=== PATIENT | male | born 1940 | race Caucasian/White ===

== ENCOUNTER → 2023-11-06 08:34 | Outpatient (REF) | payer MEDICARE, SELFPAY ==
[2023-11-06 10:50] LABS: Urine Albumin Negative (Neg - Trace); Urine Bilirubin Negative (Negative); Urine Character Clear (Clear); Urine Color Yellow; Urine Glucose Negative (Negative); Urine Ketone Negative (Negative); Urine Leukocyte Negative (Negative); Urine Nitrite Negative (Negative); Urine Occult Blood Negative (Negative); Urine Specific Gravity 1.015 (<1.030); Urine Urobilinogen Negative (Neg - 1+)
[2023-11-06 11:10] LABS: % Basophils 0.2 % (0-2); % Immature Granulocytes 0.4 % (0-0.5); % Lymphocytes 23.6 % (20.5-51.1); % Monocytes 7.6 % (1.7-9.3); % Neutrophils 66.2 % (42.2-75.2); Absolute Eosinophils 0.1 10^3/uL (0-0.7); Absolute Lymphocytes 1.3 10^3/uL (1.2-3.4); Absolute Monocytes 0.4 10^3/uL (0.1-0.6); Absolute Neutrophils 3.7 10^3/uL (1.4-6.5); Hematocrit 41.8 % (39.0-52.0); Hemoglobin 13.8 g/dL (13.0-18.0); Mean Corpuscular Hgb 29.1 pg (27.0-31.0); Mean Platelet Volume 13.5 fL (7.4-10.4); Nucleated Red Blood Cells % 0 % (-); Platelet Count 140 10^3/uL (130-400); Red Blood Cell Count 4.75 10^6/uL (4.70-6.10); Red Cell Dist. Width 12.8 % (11.5-14.5); White Blood Cell Count 5.5 10^3/uL (4.8-10.8)
[2023-11-06 11:18] LABS: Glycohemoglobin (HgbA1c) 5.5 % (4.0-5.6)
[2023-11-06 11:26] LABS: ALT (SGPT) 17 U/L (0-50); AST (SGOT) 25 U/L (17-59); Albumin 4.1 g/dl (3.5-5.0); Alkaline Phosphatase 62 U/L (38-126); Blood Urea Nitrogen 20 mg/dl (9-20); Calcium 9.4 mg/dl (8.4-10.2); Carbon Dioxide 28 mmol/L (22-30); Chloride 103 mmol/L (98-107); Glucose 94 mg/dl (70-99); HDL Cholesterol 88 mg/dl; LDL Cholesterol, Calculated 135 mg/dl; Potassium 4.4 mmol/L (3.5-5.1); Sodium 139 mmol/L (135-145); Total Bilirubin 0.6 mg/dl (0.2-1.3); Total Cholesterol 237 mg/dl (50-199); Total Protein 6.4 g/dl (6.3-8.2); Triglyceride 73 mg/dl (10-149); Very Low Density Lipoprotein 14 mg/dl (0-30); eGFR > 60.00
[2023-11-06 11:36] LABS: Vitamin D, 25-OH*** 49.7 ng/mL (30-80)
[2023-11-06 11:49] LABS: TSH Reflex To Free T4 1.52 uIU/ml (0.47-4.68)
[2023-11-06 13:24] LABS: Vitamin B12 647 pg/ml (239-931)
== END ==
LOC: REG 08:34
PROVIDERS: ATTENDING PHYSICIAN Nurse Practitioner Primary Care
DX: I10 Essential (primary) hypertension (principal); E78.2 Mixed hyperlipidemia; R73.03 Prediabetes; R41.3 Other amnesia; N40.1 Benign prostatic hyperplasia with lower urinary tract symptoms; R35.0 Frequency of micturition; E55.9 Vitamin D deficiency, unspecified
CPT/HCPCS: 36415; 80053; 80061; 81003; 82306; 82607; 83036; 84443; 85025

== ENCOUNTER → 2024-06-04 08:05 | Outpatient (REF) | payer MEDICARE, SELFPAY | LOC: HWRCS 08:05 | PROVIDERS: ATTENDING PHYSICIAN Nurse Practitioner Primary Care | DX: I10 Essential (primary) hypertension (principal); R07.89 Other chest pain; E78.2 Mixed hyperlipidemia | CPT/HCPCS: 78452; 93017; A9500; J2785 ==

== ENCOUNTER → 2024-06-08 08:18 | Outpatient (REF) | payer MEDICARE, SELFPAY ==
[2024-06-08 09:07] LABS: Urine Albumin Negative (Neg - Trace); Urine Bilirubin Negative (Negative); Urine Character Clear (Clear); Urine Color Yellow; Urine Glucose Negative (Negative); Urine Ketone Negative (Negative); Urine Leukocyte Negative (Negative); Urine Nitrite Negative (Negative); Urine Occult Blood Negative (Negative); Urine Specific Gravity 1.015 (<1.030); Urine Urobilinogen Negative (Neg - 1+)
[2024-06-08 09:23] LABS: Erythrocyte Sed Rate 1 mm/hour (0-20)
[2024-06-08 09:53] LABS: ALT (SGPT) 22 U/L (0-50); AST (SGOT) 25 U/L (17-59); Albumin 3.9 g/dl (3.5-5.0); Alkaline Phosphatase 66 U/L (38-126); Blood Urea Nitrogen 24 mg/dl (9-20); Carbon Dioxide 31 mmol/L (22-30); Chloride 101 mmol/L (98-107); Glucose 104 mg/dl (70-99); HDL Cholesterol 81 mg/dl; LDL Cholesterol, Calculated 131 mg/dl; Sodium 137 mmol/L (135-145); Total Bilirubin 0.7 mg/dl (0.2-1.3); Total Cholesterol 228 mg/dl (50-199); Total Protein 6.2 g/dl (6.3-8.2); Triglyceride 82 mg/dl (10-149); Very Low Density Lipoprotein 16 mg/dl (0-30); eGFR > 60.00
[2024-06-08 10:04] LABS: Vitamin D, 25-OH*** 65.6 ng/mL (30-80)
[2024-06-08 10:18] LABS: TSH Reflex To Free T4 1.26 uIU/ml (0.47-4.68)
[2024-06-08 10:25] LABS: Glycohemoglobin (HgbA1c) 5.6 % (4.0-5.6)
[2024-06-08 10:37] LABS: Vitamin B12 652 pg/ml (239-931)
== END ==
LOC: REG 08:18
PROVIDERS: ATTENDING PHYSICIAN Nurse Practitioner Primary Care
DX: R41.3 Other amnesia (principal); E78.2 Mixed hyperlipidemia; R73.03 Prediabetes; N40.1 Benign prostatic hyperplasia with lower urinary tract symptoms
CPT/HCPCS: 36415; 80053; 80061; 81003; 82306; 82607; 83036; 84443; 85652; 86780

== ENCOUNTER → 2024-06-09 17:32 | Outpatient (REF) | payer MEDICARE, SELFPAY | LOC: RCS 17:32 | PROVIDERS: ATTENDING PHYSICIAN Nurse Practitioner Primary Care | DX: I10 Essential (primary) hypertension (principal); R07.89 Other chest pain; E78.2 Mixed hyperlipidemia | CPT/HCPCS: 93306 ==

== ENCOUNTER 2025-02-04 19:24 | Emergency (ER) | payer MEDICARE, SELFPAY ==
[2025-02-04 19:50] LABS: Hematocrit 44.5 % (39.0-52.0); Hemoglobin 14.4 g/dL (13.0-18.0); Mean Corp Hgb Conc. 32.4 g/dL (33.0-37.0); Mean Corpuscular Volume 89.5 fL (80.0-94.0); Nucleated Red Blood Cells % 0 % (-); Platelet Count 153 10^3/uL (130-400); Red Cell Dist. Width 12.9 % (11.5-14.5)
[2025-02-04 20:13] LABS: ALT (SGPT) 27 U/L (0-50); AST (SGOT) 30 U/L (17-59); Albumin 4.6 g/dl (3.5-5.0); Alkaline Phosphatase 66 U/L (38-126); Blood Urea Nitrogen 22 mg/dl (9-20); Calcium 9.9 mg/dl (8.4-10.2); Carbon Dioxide 31 mmol/L (22-30); Chloride 102 mmol/L (98-107); Glucose 111 mg/dl (70-99); Potassium 4.0 mmol/L (3.5-5.1); Sodium 139 mmol/L (135-145); Total Protein 7.2 g/dl (6.3-8.2); eGFR > 60.00
[2025-02-04 20:23] LABS: Troponin I < 0.012 ng/ml
--- NOTE | 2025-02-05 00:58 | ED.GENMED ---
History of Present Illness
General
Chief Complaint: Fainting/Passed Out
Source: patient
Exam Limitations: none
Time Seen by Provider: 02/05/25 00:22
Nursing documentation reviewed up to this point in time: agreed with
History of Present Illness
History of Present Illness:
Patient is an 85-year-old male presents after syncopal episode. Patient was in the sauna at the gym for about 20 minutes came out and had a syncopal episode and fell. Patient's son was with him.
Patient sustained laceration to his nose and abrasion to forehead. He is unsure of his last tetanus. Patient denies any other bony pain. It is documented from triage note the patient has abrasions to his left shoulder and bilateral knees however
he has no complaints of pain. He denies any headache nausea vomiting. He reports he has chronic neck pain. He denies any chest pain or shortness of breath prior to the event.
He is not on blood thinners.
Past History
Past History
ED Past Medical History: HTN and Hypercholesterolemia
Social History
Tobacco: Non-smoker
Phy Exam
General Physical Exam
General Presentation: no apparent distress
General age: appears stated age
General Skin: warm and dry
General Habitus: elderly
General Mental: alert
General Hydration: dry mucous membranes
ENT Exam
ENT Exam: other (+ 2 cm v shaped laceration to bridge of nose + abrasion to forehead and ecchymosis under left eye no bony orbital tenderness)
Eye Exam
Eye Exam: PERRL, EOMI and other (No bony orbital tenderness to bilateral orbits no entrapment)
Eye Exam General: PERRL: bilateral and EOM intact: bilateral
Pupil Exam: Bilateral: round and reactive
Cardiovascular Exam
Cardiovascular Exam: no murmur, normal peripheral pulses and bradycardia
Pulmonary Exam
Pulmonary Exam: lungs clear and no respiratory distress
Neurological Exam
Neurological Exam: alert and oriented x3
Musculoskeletal Exam
Musculoskeletal Exam: other (No bony C-spine tenderness bilateral knee abrasions with no bony knee tenderness full range of motion + left shoulder abrasion no bony tenderness full rom )
Skin Exam
Skin Exam: normal color and warm/dry
Course
Orders/Labs/Results
Orders:
Orders
02/04/25 19:26
ECG [Electrocardiogram (*1)] Urgent
Reason for Study: Syncope
EKG- Treatment ONCE
02/04/25 19:35
CT Head W/o Iv Contrast Urgent
Comment:
Reason For Exam: head injury
02/04/25 19:42
Complete Blood Count/With Diff Urgent
Comprehensive Metabolic Panel Urgent
Troponin I Urgent
02/05/25 01:04
CT Facial Bones W/o Iv Contras Urgent
Comment:
Reason For Exam: fall
02/05/25 01:18
CT Cervical Spine W/o Iv Contr Urgent
Comment:
Reason For Exam: trauma
IV Insert/Care/Rem.- Treatment PRN
0.9% Sodium Chloride 1000 ml [Nss] 1,000 ml IV BOLUS
Tetanus/Diphth/Acelpertussis [Adacel] 0.5 ml IM .ONCE ONE
Abnormal Lab Results
02/04/25
19:42
MCHC 32.4 L g/dL
(33.0-37.0)
MPV 13.0 H fL
(7.4-10.4)
Carbon Dioxide 31 H mmol/L
(22-30)
BUN 22 H mg/dl
(9-20)
Glucose 111 H mg/dl
(70-99)
02/04/25 19:42
02/04/25 19:42
Vital Signs
Initial and Last Documented VS:
Initial Vital Signs
Temp Pulse Resp Pulse Ox
97.9 F 63 19 100
02/04/25 19:32 02/04/25 19:32 02/04/25 19:32 02/04/25 19:32
Last Documented Vital Signs
Temp Pulse Resp BP Pulse Ox
97.9 F 63 18 138/56 95
02/04/25 19:32 02/05/25 00:36 02/05/25 00:36 02/05/25 01:00 02/05/25 01:00
Procedures
Laceration Closure
nose:
Status of Wound: appears infected
Size of Wound in cm: 2
Description of Wound Edges: flap-well vascularized
Preparation: cleaned with saline
Anesthesia: 1% Lidocaine
Revision/Debridement: routine- no revision
Type of Closure: single layer closure and interrupted sutures
Skin Closure Material: 6-0 nylon
Number of sutures: 2
MDM/Problems Addressed
Differential Diagnosis Includes:
Not limited to syncope, dehydration, head injur,/y intracranial hemorrhage ,nasal fracture ,nasal laceration, abrasions, contusions
MDM/Problems Addressed:
Patient is a 85-year-old male was in a sauna and had a syncopal episode after sustaining laceration to nose and abrasions to head. He has abrasions to his left shoulder bilateral knees however he has no bony tenderness. He has full range of motion
to all extremities he is awake alert. He has a history of mild dementia however is at baseline is able to give good history and answer questions appropriately. Head CT was done prior to my exam and negative will obtain CT facial bones and cervical
spine film. Tetanus was updated. Patient sustained a laceration to nose which was repaired with sutures. Labs reviewed patient with an elevated BUN of 22 ;small fluid bolus ordered patient also taking oral fluids here in the ER
Chronic conditions affecting care:
Mild dementia
*Radiology
Radiology exam reviewed: radiology read reviewed
*Pulse Oximetry
SaO2: 95
Oxygen Mode of Delivery: Room air
Patient hypoxic: no
*EKG
Interpreted by ED Provider?: Yes
Comparison EKG: no changes
Heart Rate: 59
Rate: bradycardiac
Rhythm: sinus
Ischemia: no ischemia
*Critical Care Note
Total Time (30-74mins, 75-104mins- exclusive of procedures): Not Applicable
ED Attending Note
-
Portions of this chart may have been created with voice recognition software.� Occasional wrong word or��sound alike� substitutions may have occurred due to the inherent limitations of voice recognition software.
Discharge Plan
Departure
Patient Disposition: Home (Routine Discharge)
Date of Disposition: 02/05/25
Time of Disposition: 04:02
Patient with high blood pressure during this ER visit?: Yes
Condition: Fair
Covid-19: Not Applicable
Discharge Problem:
Head injury, Syncope, Laceration, Abrasion
Instructions: Syncope (Fainting) (DC), BLOOD PRESSURE, Laceration
Prescriptions:
No Action
famotidine 40 mg Tablet
40 mg PO PRN PRN (Reason: GI issues)
psyllium Powder
1 tsp PO DAILY
lisinopril-hydrochlorothiazide 10-12.5 mg Tablet
1 tab PO PRN PRN (Reason: elevated blood pressure)
fluticasone propionate 50 mcg/actuation [place],Suspension
2 spray INTRANASAL DAILY
folic acid 800 mcg Tablet
0.8 mg PO DAILY
Saline Nasal Mist 0.65 % Aerosol,[place]
1 spray INTRANASAL PRN PRN (Reason: stuffy nose)
omega [id number]-fish oil [Fish Oil] 1,000 mg (120 mg-180 mg) Capsule
1 cap PO DAILY
Dynamic Brain
2 cap PO DAILY
Systane Complete
2 drp BOTH EYES BID
tramadol 50 mg tablet
50 mg PO Q6HPRN PRN (Reason: severe pain/breakthrough pain) Qty: 7 0RF
acetaminophen [Tylenol Extra Strength] 500 mg tablet
1,000 mg PO Q6HPRN PRN (Reason: mild pain) Qty: 1 0RF
ibuprofen 200 mg tablet
400 mg PO Q6HPRN PRN (Reason: moderate pain) Qty: 1 0RF
polyethylene glycol 3350 [Miralax] 17 gram/dose powder
4 g PO DAILY PRN (Reason: Constipation) Qty: 119 0RF
Rx Instructions:
start a laxative such as MIRALAX on day 2 after surgery if no bowel movement yet as long as no nausea/vomiting and passing gas
Referrals:
Placido Alexander DO [Family Provider, Internal Medicine]
Activity Restrictions/Additional Instructions:
Keep laceration clean and dry for 24 hours after 24 hours wash twice a day with soap and water pat dry and apply small layer of antibiotic ointment to the area.
See family doctor in 2 days for wound check and reevaluation of symptoms. Sutures to be removed in the next 5 days.
Please increase fluid intake you were dehydrated
Interventions
Interventions:
*Risk Screen - Suicide Last Done: 02/04/25 19:34
*General Assessment Last Done: 02/04/25 19:34
*Neglect/Abuse Screening Last Done: 02/04/25 19:34
*ED- Fall Risk Assessment Last Done: 02/05/25 00:36
*ED COVID-19 Vaccine History Last Done: 02/04/25 19:34
*ED Influenza Vaccine History Last Done: 02/04/25 19:34
*Nursing Disposition Last Done: 02/05/25 04:55
ED- Cardiac Assessment Last Done: 02/05/25 02:47
ED- Neurological Assessment Last Done: 02/05/25 02:47
Discharge Date and Time
Discharge Date/Time: 02/05/25 04:56
Print Language: ETHIOPIAN
[2025-02-05 01:00] VITALS: BP 138/56
[2025-02-05] MEDS: ADACEL 0.5 ML IM (02:16)
[2025-02-05] MEDS: NSS 1000 IV (02:21)
== END 2025-02-05 04:56 | disposition home or self-care (01) ==
LOC: EMR 19:24
PROVIDERS: Emergency Medicine; EMERGENCY PHYSICIAN Emergency Medicine; FAMILY PHYSICIAN Internal Medicine
DX: S09.90XA Unspecified injury of head, initial encounter (principal); R55 Syncope and collapse; S01.21XA Laceration without foreign body of nose, initial encounter; R00.1 Bradycardia, unspecified; E86.0 Dehydration; F03.A0 Unspecified dementia, mild, without behavioral disturbance, psychotic disturbance, mood disturbance, and anxiety; I10 Essential (primary) hypertension; E78.00 Pure hypercholesterolemia, unspecified; M54.2 Cervicalgia; G89.29 Other chronic pain; Z23 Encounter for immunization; W18.39XA Other fall on same level, initial encounter; Y93.01 Activity, walking, marching and hiking; Y92.39 Other specified sports and athletic area as the place of occurrence of the external cause
CPT/HCPCS: 99284; 12011; 96360; 90471; 70450; 70486; 72125; 80053; 84484; 85025; 90715; 93005

== ENCOUNTER → 2025-02-18 08:20 | Outpatient (REF) | payer MEDICARE, SELFPAY ==
[2025-02-18 09:43] LABS: ALT (SGPT) 21 U/L (0-50); AST (SGOT) 25 U/L (17-59); Albumin 4.1 g/dl (3.5-5.0); Alkaline Phosphatase 69 U/L (38-126); Blood Urea Nitrogen 35 mg/dl (9-20); Calcium 9.5 mg/dl (8.4-10.2); Carbon Dioxide 32 mmol/L (22-30); Chloride 102 mmol/L (98-107); Glucose 101 mg/dl (70-99); HDL Cholesterol 106 mg/dl; LDL Cholesterol, Calculated 90 mg/dl; Potassium 4.2 mmol/L (3.5-5.1); Sodium 138 mmol/L (135-145); Total Protein 6.8 g/dl (6.3-8.2); Very Low Density Lipoprotein 10 mg/dl (0-30); eGFR > 60.00
== END ==
LOC: REG 08:20
PROVIDERS: ATTENDING PHYSICIAN Nurse Practitioner Primary Care
DX: E78.2 Mixed hyperlipidemia (principal)
CPT/HCPCS: 36415; 80053; 80061